=== PATIENT | female | born 1995 | race Caucasian/White ===

== ENCOUNTER 2019-09-04 09:40 | Emergency (ER) | payer SELFPAY ==
[~2019-09-04] VITALS: Ht 160 cm; Wt 57.2 kg
[2019-09-04 09:43] VITALS: Ht 160 cm; Wt 57.2 kg
[2019-09-04 11:29] VITALS: BP 115/70
== END 2019-09-04 11:29 | disposition home or self-care (01) ==
LOC: ED 09:40
DX: T78.2XXA Anaphylactic shock, unspecified, initial encounter (principal); Z91.018 Allergy to other foods; X58.XXXA Exposure to other specified factors, initial encounter; Y93.89 Activity, other specified; Y92.89 Other specified places as the place of occurrence of the external cause; Y99.8 Other external cause status
CPT/HCPCS: J0171; J1200; J2930